=== PATIENT | male | born 1990 | race African-American/Black ===

== ENCOUNTER 2023-03-26 06:51 | Emergency (ER) | payer OTHER ==
[2023-03-26] MEDS ORDERED: Acetaminophen 325 MG Tab PO ONE (07:59)
[2023-03-26] MEDS ORDERED: Lidocaine 1% with EPINEPHrine 1:100,000 10 ML MDV INJECT ONE (09:11)
[2023-03-26] MEDS ORDERED: Lidocaine 2% with EPINEPHrine 1:100,000 20 ML MDV INJECT ONE (09:30)
[2023-03-26] MEDS ORDERED: Ketorolac 15 MG/ML SDV IVPUSH ONE (14:14)
[2023-03-26] MEDS ORDERED: Ketorolac 30 MG/ML SDV IM ONE (14:51)
[2023-03-26] MEDS ORDERED: Amoxicillin/Clavulanate K 875-125 MG Tab PO ONE (15:41)
== END 2023-03-26 18:03 | disposition home or self-care (01) ==
LOC: JD.ED 06:51
DX: S01.81XA Laceration without foreign body of other part of head, initial encounter (principal); S16.1XXA Strain of muscle, fascia and tendon at neck level, initial encounter; V67.5XXA Driver of heavy transport vehicle injured in collision with fixed or stationary object in traffic accident, initial encounter; Y92.410 Unspecified street and highway as the place of occurrence of the external cause
CPT/HCPCS: 12015; 70450; 72125; 96372; 99284; A9270; J1885; 12014; 99283; J3490